=== PATIENT | female | born 1945 | race Caucasian/White ===

== ENCOUNTER → 2023-11-05 10:40 | Outpatient (REF) | payer MEDICARE, OTHER, SELFPAY | LOC: RAD 10:40 | PROVIDERS: ATTENDING PHYSICIAN Surgery; FAMILY PHYSICIAN Family Medicine | DX: K43.5 Parastomal hernia without obstruction or gangrene (principal) | CPT/HCPCS: 74176 ==

== ENCOUNTER 2024-02-01 09:12 | Inpatient (IN) | payer MEDICARE, OTHER, SELFPAY ==
[2023-12-28 09:46] VITALS: BMI 23.8
[2023-12-28 10:45] LABS: % Basophils 0.4 % (0-2); % Eosinophils 0.2 % (0-6); % Immature Granulocytes 0.6 % (0-0.5); % Lymphocytes 25.9 % (20.5-51.1); % Neutrophils 63.9 % (42.2-75.2); Absolute Immature Granulocytes 0.1 10^3/uL (0-0.05); Absolute Lymphocytes 2.5 10^3/uL (1.2-3.4); Absolute Monocytes 0.9 10^3/uL (0.1-0.6); Absolute Neutrophils 6.1 10^3/uL (1.4-6.5); Hematocrit 35.9 % (37.0-47.0); Hemoglobin 11.9 g/dL (12.0-16.0); Mean Corp Hgb Conc. 33.1 g/dL (33.0-37.0); Mean Corpuscular Hgb 33.6 pg (27.0-31.0); Mean Corpuscular Volume 101.4 fL (81.0-99.0); Mean Platelet Volume 12.2 fL (7.4-10.4); Nucleated Red Blood Cells % 0 %; Platelet Count 169 10^3/uL (130-400); Red Blood Cell Count 3.54 10^6/uL (4.20-5.40); Red Cell Dist. Width 12.8 % (11.5-14.5); White Blood Cell Count 9.6 10^3/uL (4.8-10.8)
[2023-12-28 11:17] LABS: Blood Urea Nitrogen 27 mg/dl (7-17); Calcium 9.2 mg/dl (8.4-10.2); Carbon Dioxide 24 mmol/L (22-30); Chloride 106 mmol/L (98-107); Estimated Creatinine Clearance 42 ml/min; Glucose 87 mg/dl (70-99); Potassium 3.7 mmol/L (3.5-5.1); Sodium 143 mmol/L (135-145); eGFR > 60.00
[2024-02-01] VITALS (14 sets, daily range): BP systolic 117–152; BP diastolic 64–95; BMI 23.8
[2024-02-01] MEDS: TYLENOL 1000 MG PO (09:22)
--- NOTE | 2024-02-01 12:47 | W.IMMPOSTOP ---
Addendum entered and electronically signed by Joe Urban MD 02/01/24 14:17:
[facility]# [id number]
Original Note:
Surgical Immed Post Op Note
-
Primary Surgeon: Wilmar
Assisting Surgeon: None
Pre-op Diagnosis: Parastomal hernia
Post-op Diagnosis: Parastomal hernia
Procedure Performed: Open parastomal hernia repair with mesh
Anesthesia Type: General
Specimen / Cultures:
1. Small bowel
Estimated Blood Loss: 7 cc
Complications: None
Operative Findings:
1. Local open approach to parastomal hernia repair, incision at mucocutaneous junction
2. Redundant ileum within hernia sac, resected back to taught straight ileum
3. limited opening of fascial defect closed slightly with 0 PDS x1, Phasix mesh 8 x 10 cm sam-hole onlay
4. Ostomy renatured at same site
Plan:
-- Clears for today
-- Advance tomorrow as tolerated
-- IV abx while in hospital
-- DC tomorrow pending diet and pain control
[2024-02-01] MEDS: TORADOL 10 MG IV (13:36)
[2024-02-01] MEDS: DILAUDID 0.25 MG IV (14:15)
--- NOTE | 2024-02-01 15:27 | PTCARENOTE ---
1503: Patient arrived to 2S. Full head to toe assessment completed. R side ileostomy red, moist and budded. Patient on 2L NC with SpO2 greater than 92%. Call hargrove within reach and bed in lowest position. Family at bedside.
[2024-02-01] MEDS: LEVAQUIN 100 IV (16:28)
[2024-02-01] MEDS: TYLENOL PO ×3 (16:28→23:19)
[2024-02-01] MEDS: FLAGYL 500 MG 100 IV (18:29)
[2024-02-01] MEDS: INDERAL 20 MG PO (21:38)
[2024-02-01] MEDS: PEPCID 20 MG PO (21:38)
[2024-02-01] MEDS: TYLENOL 650 MG PO (22:32)
[2024-02-01] MEDS: PROVERA 2.5 MG PO (22:33)
[2024-02-01] MEDS: PROZAC 20 MG PO (22:57)
[2024-02-02] MEDS: FLAGYL 500 MG 100 IV ×2 (02:14→08:36)
[2024-02-02 03:28] VITALS: BP 109/61
[2024-02-02] MEDS: TYLENOL PO (05:04)
[2024-02-02] MEDS: SYNTHROID 75 MCG PO (05:10)
[2024-02-02 05:28] LABS: Hemoglobin 10.9 g/dL (12.0-16.0); Mean Corp Hgb Conc. 34.1 g/dL (33.0-37.0); Mean Corpuscular Hgb 34.9 pg (27.0-31.0); Mean Corpuscular Volume 102.6 fL (81.0-99.0); Mean Platelet Volume 11.5 fL (7.4-10.4); Platelet Count 130 10^3/uL (130-400); Red Blood Cell Count 3.12 10^6/uL (4.20-5.40); Red Cell Dist. Width 12.7 % (11.5-14.5); White Blood Cell Count 11.7 10^3/uL (4.8-10.8)
[2024-02-02 05:49] LABS: Blood Urea Nitrogen 14 mg/dl (7-17); Calcium 8.3 mg/dl (8.4-10.2); Carbon Dioxide 20 mmol/L (22-30); Chloride 105 mmol/L (98-107); Estimated Creatinine Clearance 47 ml/min; Glucose 147 mg/dl (70-99); Potassium 3.3 mmol/L (3.5-5.1); Sodium 136 mmol/L (135-145); eGFR > 60.00
[2024-02-02 07:57] VITALS: BP 135/65
[2024-02-02] MEDS: INDERAL 20 MG PO (08:31)
[2024-02-02] MEDS: TYLENOL 650 MG PO ×3 (08:31→15:41)
[2024-02-02] MEDS: PEPCID 40 MG PO (10:48)
[2024-02-02 11:23] VITALS: BP 122/67
--- NOTE | 2024-02-02 11:52 | W.PN.GS2 ---
Addendum entered and electronically signed by Del Cordova MD 02/02/24 15:45:
I saw and examined the patient.
The Rat Farmer's note was reviewed and I agree with the note.
Comment: Mild pain with bending at the waist, otherwise pain well controlled. Denies n/v, passing flatus and stool via stoma. Exam aprop. Plan for ADAT, will be ready for DC when tolerating LRD
Original Note:
Today's Communication / Plan
-
ADAT
Dispo planning
Assessment / Plan
-
78 yo female presenting for management of parastomal hernia and now POD #1 open parastomal hernia repair with mesh
AFVSS
Labs stable post op
mild hypokalemia present
+flatus/stool from stoma
--Advance to regular diet
--Give PO k
--OOB/Ambulate
--Multimodal analgesics
--ABX in the immediate perioperative period
--Anticipate discharge later today if tolerating diet and pain well managed
Subjective Data
-
Date of Service: February 02, 2024
Patient seen and examined at bedside. Denies n/v. Tolerating clears. Eager to advance to more foods. Pain minimal.
Objective Data
-
Intake and Output
02/01/24 02/02/24 02/03/24
06:59 06:59 06:59
Intake Total 630 / 630
Balance 630 / 630
Intake:
Oral fluids 480 / 480
IV fluids (Total) 150 / 150
NSS 50 / 50
Other:
Number of approximated MODERATE 2
amounts of urine
Number of approximated LARGE 1
amounts of urine
Vital Signs
Temp Pulse Resp BP Pulse Ox
98.4 F 70 16 122/67 94
02/02/24 11:23 02/02/24 11:23 02/02/24 11:23 02/02/24 11:23 02/02/24 11:23
Lab Results
02/02/24 05:14
02/02/24 05:14
Calcium 8.3 mg/dl (8.4-10.2) L 02/02/24 05:14
Physical Exam
-
NAD
ABD soft, nt, nd
Stoma pink, viable. Stoma productive of liquid brown stool and flatus in appliance
[2024-02-02] MEDS: KCL 20 MEQ PO (12:34)
[2024-02-02] MEDS: TORADOL 10 MG IV (13:49)
[2024-02-02] MEDS: LEVAQUIN 50 IV (15:40)
[2024-02-02 16:07] VITALS: BP 130/69
--- NOTE | 2024-02-02 16:14 | CM ---
Patient seen at bedside. Patient with family members. Patient states she is for discharge home today. IMM completed and signed form placed on chart. Patient states she lives alone in a one story condo. Patient has no steps to enter and no DME at
home. Patient PCP is Dr. De Guzman and she uses the [facility] in [place]. Patient is independent of ADL's and IADL's and driving. Patient transportation home is present and CM updated nursing. CM will continue to follow for discharge planning needs.
Plan ;home with no needs.
--- NOTE | 2024-02-02 17:07 | W.DS.TRANS ---
Addendum entered and electronically signed by JESSICA Fisher 02/03/24 08:39:
dictated #[id number]
Original Note:
DC Summary - Admissions Coordinator
-
Discharge Instructions:
Sleep Apnea Risk Low
Discharge Diagnosis/Procedures Open parastomal hernia repair with mesh
Diet Regular,As tolerated
Activity No strenuous activity
Additional Activity Do not lift over 15 lbs until cleared by your
surgeon
Driving Restrictions Wait until off narcotics/comfortable twisiting
Bathing Restrictions OK to Shower
Wound Care Continue to care for your ostomy as usual
Instructions:
Stand-Alone Forms:
Changes to Home Medications: No
Discharge Medications:
DC Medications w/original date entered in [employer]
coenzyme Q10 100 mg capsule (CoQ-10) 100 mg PO DAILY Supplement 01/07/24
estradiol 0.5 mg tablet 0.5 mg PO DAILY Hormonal Agent 01/07/24
famotidine 40 mg tablet 40 mg PO BID Gastrointestinal Issue 01/07/24
fluoxetine 10 mg tablet 25 mg PO HS Mental Health/Anxiety 01/07/24
levothyroxine 75 mcg tablet 75 mcg PO DAILY Thyroid 01/07/24
medroxyprogesterone 2.5 mg tablet (Provera) 2.5 mg PO HS Hormonal Agent 01/07/24
omega 7-cpu-zza-fish oil 900 mg-1,400 mg capsule,delayed release 1 cap PO DAILY Supplement 01/07/24
onabotulinumtoxinA 100 unit solution for injection (Botox) 1 unit IM .Q3MOS 01/07/24
potassium chloride 20 mEq tablet,extended release 20 meq PO DAILY PRN if having diarrhea 01/07/24
propranolol 20 mg tablet 20 mg PO BID 01/07/24
rifaximin 550 mg tablet (Xifaxan) 550 mg PO BID PRN flare of Crohns 01/07/24
tizanidine 4 mg tablet 4 mg PO HS PRN muscle spasm 01/07/24
vitamin W21-rdrrb acid 1 dose PO DAILY Stroke 01/07/24
acetaminophen 325 mg tablet 650 mg (2 x 325 mg) PO Q4HPRN PRN mild pain #1 tab 02/02/24
tramadol 50 mg tablet 25 - 50 mg (0.5 - 1 x 50 mg) PO Q6HPRN PRN severe pain/breakthrough pain #10 tabs 02/02/24
Home Medication Changes
Pending Results: No
== END 2024-02-02 17:05 | disposition home or self-care (01) | DRG 354 ==
LOC: 2 SOUTH 09:12
PROVIDERS: ADMITTING PHYSICIAN Surgery; FAMILY PHYSICIAN Family Medicine
PROC: 0WUF0JZ Supplement Abdominal Wall with Synthetic Substitute, Open Approach (ICD-10-PCS; 2024-02-01)
DX: K56.51 Intestinal adhesions [bands], with partial obstruction (principal); K50.90 Crohn's disease, unspecified, without complications; Q43.8 Other specified congenital malformations of intestine; K43.5 Parastomal hernia without obstruction or gangrene; E87.6 Hypokalemia; E03.9 Hypothyroidism, unspecified
CPT/HCPCS: 88304; 36415; 80048; 85025; 85027; 93005; C1776; C1781